=== PATIENT | female | born 1995 | race Two or more races ===

== ENCOUNTER → 2020-06-08 | Outpatient (CLI) | payer OTHER ==
--- NOTE | 2020-06-08 15:09 | RAD ---
EXAM: 1. LEFT HAND 3 VIEWS. 2. LEFT WRIST 3 VIEWS. HISTORY: Pain. COMPARISON: None. FINDINGS: No fractures are identified in the wrist. Alignment is maintained. Joint spaces are maintained. No fractures are identified throughout the hand. Alignment is maintained. Joint spaces are maintained. IMPRESSION: 1. No fracture. Electronically signed by: Dru Perez MD (06/08/2020 3:06 PM) [facility]
--- NOTE | 2020-06-08 15:09 | RAD ---
EXAM: 1. LEFT HAND 3 VIEWS. 2. LEFT WRIST 3 VIEWS. HISTORY: Pain. COMPARISON: None. FINDINGS: No fractures are identified in the wrist. Alignment is maintained. Joint spaces are maintained. No fractures are identified throughout the hand. Alignment is maintained. Joint spaces are maintained. IMPRESSION: 1. No fracture. Electronically signed by: Dru Perez MD (06/08/2020 3:06 PM) [facility]
== END ==
LOC: DXRAD 14:37
PROVIDERS: ATTEND Physician Assistant
DX: M25.532 Pain in left wrist (principal); M79.642 Pain in left hand
CPT/HCPCS: 73110; 73130